=== PATIENT | male | born 1980 | race Hispanic/Latino ===

== ENCOUNTER 2021-05-03 21:04 | Emergency (ER) | payer SELFPAY ==
[~2021-05-03] VITALS: Ht 177.8 cm; Wt 90.7 kg
== END 2021-05-03 21:30 | disposition home or self-care (01) ==
LOC: ER 21:21
DX: I83.892 Varicose veins of left lower extremity with other complications (principal); I25.10 Atherosclerotic heart disease of native coronary artery without angina pectoris
CPT/HCPCS: 99282